=== PATIENT | male | born 1950 | race Two or more races ===

== ENCOUNTER 2019-09-30 19:24 | Emergency (ER) | payer MEDICARE ==
[~2019-09-30] VITALS: Ht 175.3 cm; Wt 81.6 kg
--- NOTE | 2019-09-30 19:25 | NUR ---
ED Nurse Note: PT BROUGHT IN BY AMBULANCE 829 FROM BUS STOP C/O LOWER BACK PAIN [id number]. PT STATES PAIN WORSE TODAY AND COULD NOT GET OFF THE BUS. PT DENIES TRAUMA. VSS, NAD. PT PRESENTS WITH MILD PRODUCTIVE COUGH BUT DOES NOT PRESENT WITH FEVER.
[2019-09-30 19:34] VITALS: BP 149/77
--- NOTE | 2019-09-30 20:06 | Emergency Room Report ---
History of Present Illness General Chief Complaint: Lower Back Pain or Injury Present Illness HPI 68-year-old male with history of chronic low back pain and cocaine abuse brought in by paramedics due to worsening of low back pain. Patient reports that he was in the bus and tried to get up however pain exacerbated. Has not taken medication for pain relief. Reports that he lives in [place] however is homeless in [place]. Also complains of 1 day of cough. Denies sore throat and fever. Reports that now [place] [address]. Denies any recent fall or trauma. Denies tingling numbness, denies saddle paresthesia, urinary bowel incontinence Allergies: Coded Allergies: PENICILLINS (Verified Allergy, Unknown, 09/30/19) COVID-19 Screening Contact w/high risk pt: No Recent Travel to affected area: No Experienced COVID-19 symptoms?: No Patient History Past Medical History: see triage record Past Surgical History: none Pertinent Family History: none Immunizations: UTD Reviewed Nursing Documentation: PMH: Agreed; PSxH: Agreed Review of Systems All Other Systems: negative except mentioned in HPI Physical Exam Vital Signs Date Time Temp Pulse Resp B/P (MAP) Pulse Ox O2 Delivery O2 Flow Rate FiO2 09/30/19 19:20 98.8 82 16 152/91 (111) 97 Room Air Sp02 EP Interpretation: reviewed, normal General Appearance: no apparent distress, alert, GCS 15, non-toxic Head: normocephalic, atraumatic Eyes: bilateral eye normal inspection, bilateral eye PERRL ENT: hearing grossly normal, normal pharynx, no angioedema, normal voice Neck: full range of motion, supple, thyroid normal, no meningismus, no bony tend, supple/symm/no masses Respiratory: chest non-tender, lungs clear, normal breath sounds, no rhonchi, no respiratory distress, no retraction, speaking full sentences Cardiovascular #1: regular rate, rhythm, no edema, no murmur, normal capillary refill Gastrointestinal: normal bowel sounds, non tender, soft, non-distended, no guarding, no rebound Genitourinary: no CVA tenderness Musculoskeletal: back normal, no calf tenderness, pelvis stable Neurologic: alert, motor strength/tone normal, oriented x3, sensory intact, responsive, speech normal Psychiatric: judgement/insight normal, memory normal, mood/affect normal, no suicidal/homicidal ideation Skin: no rash Lymphatic: no adenopathy Medical Decision Making PA Attestation Diagnosis and treatment plans were reviewed and discussed with my supervising physician Dr. Laurel Hernandez Attestation The treating physician has assessed and agrees that patient is medically stable for outpatient disposition Diagnostic Impression: Primary Impression: Chronic back pain Additional Impression: URI (upper respiratory infection) ER Course 68-year-old male with history of chronic low back pain and cocaine abuse brought in by paramedics due to worsening of low back pain. Patient reports that he was in the bus and tried to get up however pain exacerbated. Has not taken medication for pain relief. Reports that he lives in [place] however is homeless in [place]. Also complains of 1 day of cough. Denies sore throat and fever. Reports that now [place]. Denies any recent fall or trauma. Denies tingling numbness, denies saddle paresthesia, urinary bowel incontinence Ddx considered but are not limited to: Lumbar spine sprain, strain, fracture, contusion, neuropathy, pharyngitis, coronavirus, URI Vital signs: are WNL, pt. is afebrile H&PE are most consistent with: Chronic back pain, URI ORDERS: Tylenol, Robaxin, guaifenesin ER intervention: None DISCHARGE: At this time pt. is stable for d/c to home. Will provide printed patient care instructions, and any necessary prescriptions. Care plan and follow up instructions have been discussed with the patient prior to discharge. List of home instructions were given to the patient, and follow-up primary care provider, take medication as directed, follow-up with your primary doctor, you need to stay home for self quarantine due to Covid 19 precautions for 14 days Last Vital Signs Date Time Temp Pulse Resp B/P (MAP) Pulse Ox O2 Delivery O2 Flow Rate FiO2 09/30/19 19:34 98.8 81 16 149/77 97 Room Air Disposition: HOME, SELF-CARE Condition: Stable Scripts Guaifenesin* (GUAIFENESIN*) 100 Mg/5 Ml Liquid 15 ML ORAL Q8H, #120 ML 0 Refills Prov: Tameka Urbano 09/30/19 Methocarbamol* (ROBAXIN-500*) 500 Mg Tablet 500 MG ORAL TID PRN for For Pain, #15 TAB 0 Refills Prov: Tameka Urbano 09/30/19 Acetaminophen* (TYLENOL EXTRA STRENGTH*) 500 Mg Tablet 500 MG ORAL Q8H PRN for Prn Headache/Temp > 101, #30 TAB 0 Refills Prov: Tameka Urbano 09/30/19 Patient Instructions: Back Pain, Adult, Upper Respiratory Infection, Adult, [id number] Additional Instructions: Take medication as directed, follow-up with primary care provider, take medication as directed, follow-up with your primary doctor, you need to stay home for self quarantine due to Covid 19 precautions for 14 days Tameka Urbano Sep 30, 2019 20:06
[2019-09-30] MEDS ORDERED: TYLENOL EXTRA500 MG ORAL (20:07)
[2019-09-30] MEDS ORDERED: ROBAXIN-500MG ORAL (20:07)
[2019-09-30] MEDS ORDERED: GUAIFENESI100 MG/5 M ORAL (20:07)
[2019-09-30] MEDS ORDERED: Methocarbamol 750mg tab ORAL ONE (20:15)
[2019-09-30 20:30] VITALS: BP 147/83
--- NOTE | 2019-09-30 20:30 | NUR ---
Homeless Discharge: Patient is being discharged from medical care. Awake, alert and oriented x4. After care instructions, including referral to community resources were given. Patient verbalized understanding of After care instructions; Patient signed patient consent in the medical record for patient destination upon discharge. All medical devices such as IV and ID band were removed. Patient ambulated out with all personal belongings with steady gait. pt refused to sign homeless dc, provided pt with nourishment, pt refused to provide [facility] dispo.
== END 2019-09-30 20:30 | disposition home or self-care (01) ==
LOC: EDBD 19:24 → EMR 20:30
DX: M54.5 Low back pain (principal); G89.29 Other chronic pain; J06.9 Acute upper respiratory infection, unspecified; F14.10 Cocaine abuse, uncomplicated; Z88.0 Allergy status to penicillin
CPT/HCPCS: 99282

== ENCOUNTER 2019-10-01 12:16 | Emergency (ER) | payer MEDICARE ==
[~2019-10-01] VITALS: Ht 177.8 cm; Wt 81.6 kg
[~2019-10-01 12:16] MED LIST: GUAIFENESI100 MG/5 M ORAL; ROBAXIN-500MG ORAL; TYLENOL EXTRA500 MG ORAL
[2019-10-01 12:17] VITALS: BP 176/80
--- NOTE | 2019-10-01 12:17 | NUR ---
ED Nurse Note: pt brought in by ambulance from the street for c/o back pain and SOB x 3 months.
--- NOTE | 2019-10-01 12:29 | Emergency Room Report ---
History of Present Illness General Chief Complaint: Dyspnea/Respdistress Source: Patient Present Illness HPI 68-year-old male with history of chronic back pain who was seen at [facility] yesterday primarily for same complaint and shortness of breath brought in again by paramedics due to the same complaint. Reports that he is in no distress and he is homeless and he is looking for a place to stay. Patient was given a list of homeless shelters to go to last night that he was here. Patient was also given instructions to self quarantine due to cough and shortness of breath and possible exposure to Covid 19. Patient did not pick up and delivery driver the medication from the pharmacy. In no apparent distress and denies chest pain. Denies fever and chills. Patient appears to be afebrile oxygenation within normal limits. Allergies: Coded Allergies: PENICILLINS (Verified Allergy, Unknown, 09/30/19) COVID-19 Screening Contact w/high risk pt: No Recent Travel to affected area: No Experienced COVID-19 symptoms?: Yes COVID-19 symptoms experienced: Shortness of Breath Patient History Past Medical History: see triage record Past Surgical History: none Pertinent Family History: none Immunizations: UTD Reviewed Nursing Documentation: PMH: Agreed; PSxH: Agreed Nursing Documentation-PMH Past Medical History: No History, Except For Review of Systems All Other Systems: negative except mentioned in HPI Physical Exam Vital Signs Date Time Temp Pulse Resp B/P (MAP) Pulse Ox O2 Delivery O2 Flow Rate FiO2 10/01/19 12:10 97.5 137 18 176/75 (108) 97 Room Air Sp02 EP Interpretation: reviewed, normal General Appearance: no apparent distress, alert, GCS 15, non-toxic Head: normocephalic, atraumatic Eyes: bilateral eye normal inspection, bilateral eye PERRL ENT: hearing grossly normal, normal pharynx, no angioedema, normal voice Neck: full range of motion, supple/symm/no masses Respiratory: chest non-tender, lungs clear, normal breath sounds, no rhonchi, speaking full sentences Cardiovascular #1: no edema Musculoskeletal: normal inspection Neurologic: alert, oriented Psychiatric: normal inspection Skin: no rash Lymphatic: no adenopathy Medical Decision Making PA Attestation All my diagnosis and treatment plans were reviewed ad discussed with my supervising physician Dr. Matthews Diagnostic Impression: Primary Impression: Chronic pain Additional Impression: URI (upper respiratory infection) ER Course 68-year-old male with history of chronic back pain who was seen at [place] [facility] yesterday primarily for same complaint and shortness of breath brought in again by paramedics due to the same complaint. Reports that he is in no distress and he is homeless and he is looking for a place to stay. Patient was given a list of homeless shelters to go to last night that he was here. Patient was also given instructions to self quarantine due to cough and shortness of breath and possible exposure to Covid 19. Patient did not pick up and delivery driver the medication from the pharmacy. In no apparent distress and denies chest pain. Denies fever and chills. Patient appears to be afebrile oxygenation within normal limits. Ddx considered but are not limited to: Coronavirus, strep pharyngitis, URI, tonsillitis, peritonsillar abscess, influneza Vital signs: are WNL, pt. is afebrile H&PE are most consistent with: URI, chronic pain ORDERS: None ED INTERVENTIONS: None required at this time. DISCHARGE: At this time pt. is stable for d/c to home. Will provide printed patient care instructions, and any necessary prescriptions. Care plan and follow up instructions have been discussed with the patient prior to discharge. Patient was instructed to be discharged with the same discharge papers as yesterday, go to homeless shelters. If worsening symptom return to emergency room Last Vital Signs Date Time Temp Pulse Resp B/P (MAP) Pulse Ox O2 Delivery O2 Flow Rate FiO2 10/01/19 12:10 97.5 137 18 176/75 (108) 97 Room Air Disposition: HOME, SELF-CARE Condition: Stable Patient Instructions: Shortness of Breath, [id number] Additional Instructions: Take medication as directed, follow-up with your primary doctor, you need to stay home for self quarantine due to Covid 19 precautions for 14 days Tameka Urbano Oct 01, 2019 12:29
--- NOTE | 2019-10-01 12:33 | NUR ---
ED Nurse Note: ERPA canceled all due order.
[2019-10-01 12:34] VITALS: BP 168/83
--- NOTE | 2019-10-01 12:34 | NUR ---
ER DISCHARGE NOTE: Patient is cleared to be discharged per ERMD, pt is aox4, on room air, with stable vital signs. pt was given dc and prescription instructions, pt was able to verbalize understanding, pt id band and iv site removed without complications. pt took all belongings. walker provided to pt. teaching on how to use provide to pt. pt verbalized understanding.
== END 2019-10-01 12:45 | disposition home or self-care (01) ==
LOC: EDBD → MERGE 12:16 → EDBD 12:16 → EMR 12:40
DX: G89.29 Other chronic pain (principal); M54.9 Dorsalgia, unspecified; J06.9 Acute upper respiratory infection, unspecified; Z59.0 Homelessness; Z88.0 Allergy status to penicillin
CPT/HCPCS: 99281